=== PATIENT | male | born 1950 | race Caucasian/White ===

== ENCOUNTER → 2019-03-24 | Outpatient (CLI) | payer MEDICARE, OTHER ==
--- NOTE | 2019-03-24 11:01 | RAD ---
Bone densitometry 03/24/2019 10:30 AM Indication: Osteoporosis Comparison Study: None available. Discussion: Bone Densitometry was performed with dual photon absorption of the lumbar spine and proximal femurs. Lumbar Spine: Bone average density is 1.037g/cm2 for L1-L4. T-Score is -1.5. Right femoral neck: Bone average density is 0.831 g/cm2. T-Score is - 1.8. IMPRESSION: Osteopenia of the lumbar spine and right femoral neck Note: Definitions established by the World [employer] Organization: Normal: T-score is -1.0 or above. Osteopenia: T-score is between -1.0 and -2.5. Osteoporosis: T-score is -2.5 or below. Electronically signed by: Negro Veloz MD (03/24/2019 10:57 AM) [id number]
== END | disposition home or self-care (01) ==
LOC: DXRAD 10:05
PROVIDERS: ATTEND Family Medicine
DX: M85.88 Other specified disorders of bone density and structure, other site (principal)
CPT/HCPCS: 77080